=== PATIENT | female | born 1995 | race Caucasian/White ===

== ENCOUNTER → 2019-04-05 | Outpatient (CLI) | payer BC ==
[~2019-04-05] MED LIST: ALBUTEROL0.09 MG/A2 IH; ZITHROMAX Z PA250 MG PO
[2019-04-05 14:10] LABS: BILIRUBIN NEGATIVE (NEGATIVE); BLOOD NEGATIVE (NEGATIVE); CLARITY SL CLOUDY (CLEAR); COLOR YELLOW (YELLOW); GLUCOSE NEGATIVE (NEGATIVE); KETONE NEGATIVE (NEGATIVE); LEUKO ESTERASE NEGATIVE (NEGATIVE); NITRITE NEGATIVE (NEGATIVE); UROBILINOGEN 0.2 E.U./dl (0.2-1.0)
[2019-04-05 14:19] LABS: ALBUMIN 3.7 gm/dl (3.1-4.5); ALKALINE PHOSPHATASE 63 U/L (45-117); BUN 14 mg/dl (7-24); CHLORIDE 106 mmol/L (98-107); CREATININE 0.82 mg/dL (0.55-1.02); IRON 48 ug/dL (50-170); POTASSIUM 4.1 mmol/L (3.5-5.1); SGOT/AST 8 IU/L (3-35); SGPT/ALT 19 U/L (12-78); SODIUM 138 mmol/L (136-145); TOTAL IRON BINDING CAPACITY 301 ug/dl (250-450); TOTAL PROTEIN 6.8 gm/dL (6.4-8.2)
[2019-04-05 14:20] LABS: BASO # 0.1 10*3/uL (0.0-0.1); BASO % 1.2 % (0.0-1.0); EOS # 0.2 10*3/uL (0.0-0.4); EOS % 1.9 % (1.0-4.0); HEMATOCRIT 39.9 % (37.0-47.0); HEMOGLOBIN 13.2 g/dl (12.0-16.0); LYMPH % 25.6 % (27.0-41.0); MEAN CELL VOLUME 91.5 fl (81.0-99.0); MEAN CORPUSCULAR HGB 30.3 pg (27.0-31.0); MEAN CORPUSCULAR HGB CONC 33.1 g/dl (33.0-37.0); MEAN PLATELET VOLUME 11.2 fl (9.6-12.3); MONO # 0.7 10*3/uL (0.1-1.0); MONO % 8.5 % (3.0-9.0); NEUT # 4.8 10*3/uL (2.3-7.9); NEUT % 61.8 % (47.0-73.0); PLATELET COUNT AUTOMATED 221 10*3/uL (130-400); RED BLOOD COUNT 4.36 10*6/uL (4.10-5.10); RED CELL DISTRI WIDTH 12.1 % (0-14.5); WHITE BLOOD COUNT 7.8 10*3/uL (4.8-10.8)
[2019-04-05 14:37] LABS: BACTERIA 2+; EPITHELIAL CELLS 20-30
[2019-04-07 22:06] LABS: IGG P18 AB Absent (.); IGG P23 AB Absent (.); IGG P28 AB Absent (.); IGG P30 AB Absent (.); IGG P39 AB Absent (.); IGG P41 AB Absent (.); IGG P45 AB Absent (.); IGG P58 AB Absent (.); IGG P63 AB Absent (.); IGG P66 AB Absent (.); IGM P23 AB Absent (.); IGM P39 AB Absent (.); IGM P41 AB Absent (.); LYME IGG WB INTERPRETATION Negative (.); LYME IGM WB INTERPRETATION Negative (.)
== END | disposition home or self-care (01) ==
LOC: LAB 13:25
PROVIDERS: Nurse Practitioner Family
DX: F32.9 Major depressive disorder, single episode, unspecified (principal); R51 Headache; R00.0 Tachycardia, unspecified; R53.83 Other fatigue